=== PATIENT | female | born 1955 ===

== ENCOUNTER 2021-11-21 20:59 | Emergency (ER) | payer OTHER ==
[~2021-11-21] VITALS: Ht 154.9 cm; Wt 93.9 kg
[2021-11-21] MEDS ORDERED: SYNTHROID (21:27)
[2021-11-21] MEDS ORDERED: METFORMIN (21:29)
[2021-11-21] MEDS ORDERED: NEURONTIN600 M1 (21:30)
[2021-11-21] MEDS ORDERED: LIPITOR (21:30)
[2021-11-21] MEDS ORDERED: AMITRIPTYLINE H50 MG (21:34)
[2021-11-21] MEDS ORDERED: OMEPRAZOLE (21:34)
[2021-11-21] MEDS ORDERED: SULINDAC200 MG (21:36)
[2021-11-21] MEDS ORDERED: [UNRECOGNIZED DRUG - OTHER] (21:39)
[2021-11-21] MEDS ORDERED: HYDROCHLOROTHIA25 MG (21:40)
[2021-11-21] MEDS ORDERED: MUCINEX DM ER1 EAC1 PO (22:19)
[2021-11-21] MEDS ORDERED: TESSALON PERLE100 M1 PO (22:19)
== END 2021-11-21 22:29 ==
LOC: ER 20:59
DX: R50.9 Fever, unspecified (principal); Z20.822 Contact with and (suspected) exposure to COVID-19; E11.9 Type 2 diabetes mellitus without complications; I10 Essential (primary) hypertension